=== PATIENT | female | born 1990 | race Caucasian/White ===

== ENCOUNTER 2022-06-03 20:03 | Emergency (ER) | payer OTHER ==
[~2022-06-03] VITALS: Ht 162.6 cm; Wt 74.8 kg
[2022-06-03 20:16] VITALS: BP 127/77
[2022-06-03 21:19] LABS: APPEARANCE,URINE SLIGHTLY CLOUDY (CLEAR); COLOR,URINE YELLOW (YELLOW)
[2022-06-03 21:20] LABS: BILIRUBIN,URINE NEGATIVE (NEGATIVE); BLOOD, URINE 4+ (NEGATIVE); PH,URINE 7.5 (5.0-9.0); UGLUCOSE NEGATIVE (NEGATIVE)
[2022-06-03 21:21] LABS: LEUKOCYTE ESTERASE ,URINE TRACE (NEGATIVE); NITRITE, URINE NEGATIVE (NEGATIVE)
--- NOTE | 2022-06-03 21:24 | NUR ---
PT TO 3
[2022-06-03 21:33] LABS: OTHER CASTS, URINE None Seen /LPF (None Seen); RBC,URINE 11-20 (MOD) /HPF (0-5)
[2022-06-03] MEDS: KETOROLAC 30 MG/ML VIAL IM ONE ×3 (22:39→22:55)
[2022-06-03 22:47] LABS: BASOPHILS # (AUTO) 0.1 K/uL (0.00-0.22); BASOPHILS % (AUTO) 0.5 % (0.0-2.0); EOSINOPHILS # (AUTO) 0.2 K/uL (0-0.4); HEMATOCRIT 36.3 % (36-48); HEMOGLOBIN 12.6 g/dL (12.0-16.0); LYMPHOCYTES # (AUTO) 2.7 K/uL (2.5-16.5); LYMPHOCYTES % (AUTO) 26.6 % (20.5-51.1); MEAN CORPUSCULAR HEMOGLOBIN 31 pg (27-31); MEAN CORPUSCULAR HGB CONC 35 g/dL (33-37); MEAN CORPUSCULAR VOLUME 88.8 fL (80-94); MONOCYTES # (AUTO) 0.8 K/uL (0.8-1.0); MONOCYTES % (AUTO) 7.5 % (1.7-9.3); NEUTROPHILS # (AUTO) 6.4 K/uL (1.8-7.7); NEUTROPHILS % (AUTO) 63.4 % (42.2-75.2); PLATELET COUNT (AUTO) 389 K/uL (140-450); RED BLOOD CELL COUNT(AUTO) 4.09 MIL/uL (4.20-5.40); RED CELL DISTRIBUTION WIDTH 13.3 % (11.6-13.7); WHITE BLOOD COUNT (AUTO) 10.1 K/uL (4.8-10.8)
--- NOTE | 2022-06-03 22:57 | NUR ---
XRAY AT BEDSIDE
[2022-06-03 23:04] LABS: ALBUMIN 4.1 g/dL (3.4-5.0); ANION GAP 11.4 (8-16); CARBON DIOXIDE 28.6 mmol/L (21-32); CREATININE 0.7 mg/dL (0.6-1.3); TOTAL BILIRUBIN 0.4 mg/dL (0.0-1.0)
--- NOTE | 2022-06-04 00:01 | NUR ---
ERMD by bedside
[2022-06-04] MEDS ORDERED: CEPH500C16 PO (00:17)
[2022-06-04 00:29] VITALS: BP 116/66
--- NOTE | 2022-06-04 00:32 | NUR ---
Patient discharged with v/s stable. Written and verbal after care instructions given and explained. New orders for Keflex. Patient verbalized understanding. Ambulatory with steady gait. All questions addressed prior to discharge. Advised to follow up with PMD.
== END 2022-06-04 00:29 | disposition home or self-care (01) ==
LOC: EDSEX 20:03 → MED 20:03
DX: N39.0 Urinary tract infection, site not specified (principal)
CPT/HCPCS: 36415; 71045; 80053; 81001; 81025; 85025; 87086; 96372; 99284; J1885; Q0092